=== PATIENT | male | born 1990 | race Two or more races ===

== ENCOUNTER 2022-03-10 20:52 | Emergency (ER) | payer OTHER ==
[~2022-03-10] VITALS: Ht 170.2 cm; Wt 68.0 kg
[~2022-03-10 20:52] MED LIST: FIORICET 50-321 EACH PO
== END 2022-03-10 21:58 | disposition home or self-care (01) ==
LOC: ER 20:52
DX: L02.415 Cutaneous abscess of right lower limb (principal)

== ENCOUNTER 2022-05-19 11:07 | Emergency (ER) | payer OTHER ==
[~2022-05-19] VITALS: Ht 172.7 cm; Wt 66.7 kg
[2022-05-19] MEDS ORDERED: KETO10TA2 PO (15:03)
== END 2022-05-19 15:16 | disposition home or self-care (01) ==
LOC: ER 11:07
DX: L02.512 Cutaneous abscess of left hand (principal)

== ENCOUNTER 2022-06-23 21:10 | Emergency (ER) | payer OTHER ==
[~2022-06-23] VITALS: Ht 175.3 cm; Wt 59.0 kg
[~2022-06-23 21:10] MED LIST changes: +KETO10TA2 PO
== END 2022-06-23 22:23 | disposition home or self-care (01) ==
LOC: ER 21:10
DX: L02.413 Cutaneous abscess of right upper limb (principal); L03.113 Cellulitis of right upper limb

== ENCOUNTER 2022-07-09 10:38 | Emergency (ER) | payer OTHER ==
[~2022-07-09] VITALS: Ht 177.8 cm; Wt 66.7 kg
[2022-07-09] MEDS ORDERED: IBU800 MG PO (15:36)
== END 2022-07-09 16:29 | disposition home or self-care (01) ==
LOC: ER 10:38
DX: M25.441 Effusion, right hand (principal)

== ENCOUNTER 2024-02-09 10:45 | Emergency (ER) | payer OTHER ==
[~2024-02-09] VITALS: Ht 177.8 cm; Wt 70.8 kg
[~2024-02-09 10:45] MED LIST changes: +IBU800 MG PO
[2024-02-09] MEDS ORDERED: KETOROLAC TROMETHAMINE 60 MG VIAL IM STA (12:38)
[2024-02-09 14:49] VITALS: BP 131/82; O2SAT 98
== END 2024-02-09 14:51 | disposition left against medical advice (07) ==
LOC: ER 10:46
DX: M25.531 Pain in right wrist (principal); M79.641 Pain in right hand; Z88.2 Allergy status to sulfonamides

== ENCOUNTER 2024-02-28 06:50 | Day surgery (SDC) | payer OTHER ==
[2024-02-24 08:59] LABS: URINE APPEARANCE Clear; URINE BILIRRUBIN Negative (NEGATIVE); URINE BLOOD Negative; URINE COLOR Yellow; URINE GLUCOSE Negative (NEGATIVE); URINE KETONE Negative (NEGATIVE); URINE LEUKOCYTE Negative; URINE NITRATE Negative; URINE PROTEIN Negative (NEGATIVE); URINE UROBILINOGEN 0.2 E.U./dl
[2024-02-24 09:00] LABS: HEMATOCRIT 42.6 % (39.0-48.0); HEMOGLOBIN 14.7 g/dL (13-16.00); MEAN CELL VOLUME 95.6 fL (80.0-100.00); MEAN CORPUSCULAR HEMOGLOBIN 32.9 pg (27.00-32.0); MEAN CORPUSCULAR HGB CONC 34.4 g/dl (32.0-36.0); PLATELET COUNT 291 K/uL (150-450); RED BLOOD COUNT 4.45 M/uL (4.00-6.00)
[2024-02-24 09:14] LABS: URINE BACTERIA 0 uL (0.0-1933); URINE EPITHELIAL CELLS 0.1 uL (0.0-38.8); URINE RBC 0.1 uL (0.0-20.8); URINE WBC 0.3 uL (0.0-23.2)
[2024-02-24 09:23] LABS: INR < 0.93; PARTIAL THROMBOPLASTIN TIME 27.7 SECONDS (22.0-34.0); PROTHROMBIN TIME 10.1 SECONDS (9.0-11.5)
[2024-02-24 10:28] LABS: ALBUMIN 4.3 gm/dL (3.4-5.0); BILIRUBIN TOTAL 0.3 mg/dL (0.3-1.2); CALCIUM 9.4 mg/dL (8.5-10.1); CREATININE SERUM 0.81 mg/dL (0.70-1.30); GFR 110.43; POTASSIUM 5.59 mEq/L (3.5-5.1); TOTAL PROTEIN 7.3 gm/dL (6.4-8.2)
[~2024-02-28 06:50] MED LIST changes: +KAPSPARGO SPRIN25 MG PO; +TOPROL XL25 M1 PO
[2024-02-28] MEDS ORDERED: CEFAZOLIN SODIUM 1,000 MG in 0.9 % SODIUM CHLORIDE 50 ML IV ONE (17:00)
[2024-02-28] MEDS ORDERED: BUPIVACAINE HCL 30 ML VIAL IJ ONE (17:00)
[2024-02-28] MEDS ORDERED: ISOPROPYL ALCOHOL 30 ML OUNCE TOP ONE (17:00)
== END 2024-02-28 18:55 | disposition home or self-care (01) ==
LOC: CIR.AMB 06:50
PROVIDERS: ATTEND Orthopaedic Surgery Hand Surgery
DX: S62.014K Nondisplaced fracture of distal pole of navicular [scaphoid] bone of right wrist, subsequent encounter for fracture with nonunion (principal); Z88.2 Allergy status to sulfonamides